=== PATIENT | female | born 1985 | race Caucasian/White ===

== ENCOUNTER 2021-05-13 08:18 | Emergency (ER) | payer OTHER ==
[~2021-05-13] VITALS: Ht 152.4 cm; Wt 51.7 kg
[2021-05-13] MEDS ORDERED: ZITHROMAX500 MG PO (12:28)
== END 2021-05-13 13:54 | disposition home or self-care (01) ==
LOC: ER 08:18
DX: B34.9 Viral infection, unspecified (principal); B96.0 Mycoplasma pneumoniae [M. pneumoniae] as the cause of diseases classified elsewhere; Z03.818 Encounter for observation for suspected exposure to other biological agents ruled out; R05 Cough; R07.0 Pain in throat

== ENCOUNTER 2021-06-24 10:11 | Outpatient (CLI) | payer BC ==
[~2021-06-24 10:11] MED LIST: ZITHROMAX500 MG PO
== END 2021-06-24 10:55 | disposition home or self-care (01) ==
LOC: SONOGRAMA 10:11
PROVIDERS: ATTEND Internal Medicine
DX: E04.2 Nontoxic multinodular goiter (principal)